=== PATIENT | female | born 2005 | race African-American/Black ===

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

== ENCOUNTER 2024-09-16 02:28 | Emergency (ER) | payer MEDICAID ==
[~2024-09-16] VITALS: Ht 167.6 cm; Wt 86.4 kg
[~2024-09-16 02:28] MED LIST: OXYC5 PO
[2024-09-16 02:56] VITALS: BP 107/69; PULSE 69; RESP 14; TEMP 97.9; O2SAT 97
[2024-09-16] MEDS: ERYTHROMYCIN 0.5% 3.5 GM TUBE OPHTHALMIC OINTMENT OU ONE (04:00)
== END 2024-09-16 04:01 | disposition home or self-care (01) ==
LOC: EMS 02:30
DX: H10.89 Other conjunctivitis (principal); Z88.5 Allergy status to narcotic agent; Z79.899 Other long term (current) drug therapy
CPT/HCPCS: 99282; Z7502; Z7610